=== PATIENT | female | born 1995 | race Caucasian/White ===

== ENCOUNTER 2017-05-24 18:53 | Emergency (ER) | payer BC, OTHER ==
[~2017-05-24] VITALS: Ht 165.1 cm; Wt 48.7 kg
[2017-05-24 18:57] VITALS: Ht 165.1 cm; Wt 48.7 kg
[2017-05-24] MEDS ORDERED: ASPIRIN 325 MG TAB PO STA (19:30)
[2017-05-24] MEDS ORDERED: IBUPROFEN 600 MG TAB PO ONE (19:30)
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
--- NOTE | 2017-05-24 22:37 | RADRPT ---
PROCEDURE: CT Cervical Spine. CLINICAL INDICATION: Neck pain TECHNIQUE: A CT of the cervical spine was performed on high-resolution multi detector CT scanner utilizing thin section axial images from the skull base through the thoracic inlet. Sagittal and co karli reformatted images were made. The CTDIvol is 22.2 mGy and the DLP is 479.3 mGycm. 1 or more of the following dose reduction techniques were utilized: - Automated exposure control - Adjustment of the mA and/or kV according to patient size - Use of iterative reconstruction technique COMPARISON: None. FINDINGS: The lateral masses of C1 are symmetric and C2. No evidence of acute fractures of the C1 ring. The de ns is unremarkable. Normal lordotic curvature of the cervical spine is identified. There is no evidence of acute fractur es or subluxation of the visualized cervical spine. There is no significant prevertebral soft tissue swelling. The facets are lined symmetrically. The trachea is midline. The thyroid gland is unremarkable. The paraspinal soft tissues are unremarka ble. The lung apices are clear. IMPRESSION: 1. No evidence of acute fractures or subluxation of the visualized cervical spine. There is no signi ficant prevertebral soft tissue swelling. RPTAT: AAPP Physician Torrie Date Time Electronically viewed and signed by Physician Torrie on 05/24/2017 22:37 RAVEN/
[2017-05-24] MEDS ORDERED: IBUP-1542 PO (23:20)
[2017-05-24 23:30] VITALS: BP 118/81; PULSE 83; RESP 16; TEMP 98.3
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
== END 2017-05-24 23:30 | disposition home or self-care (01) ==
LOC: E/R 18:53 → EDBD 18:53 → E/R 23:30
DX: S13.9XXA Sprain of joints and ligaments of unspecified parts of neck, initial encounter (principal); R42 Dizziness and giddiness; V49.50XA Passenger injured in collision with unspecified motor vehicles in traffic accident, initial encounter
CPT/HCPCS: 70450; 72125; 93005